=== PATIENT | male | born 1950 | race Caucasian/White ===

== ENCOUNTER 2023-08-31 16:30 | Observation (INO) | payer MEDICARE, OTHER, SELFPAY ==
[2023-08-31] VITALS (13 sets, daily range): BP systolic 108–147; BP diastolic 62–89; BMI 21.6
[2023-08-31 10:35] LABS: % Basophils 0.5 % (0-2); % Eosinophils 0.9 % (0-6); % Immature Granulocytes 0.6 % (0-0.5); % Lymphocytes 8.4 % (20.5-51.1); % Monocytes 13.5 % (1.7-9.3); % Neutrophils 76.1 % (42.2-75.2); Absolute Basophils 0.1 10^3/uL (0-0.2); Absolute Eosinophils 0.1 10^3/uL (0-0.7); Absolute Immature Granulocytes 0.1 10^3/uL (0-0.05); Absolute Monocytes 1.6 10^3/uL (0.1-0.6); Absolute Neutrophils 8.9 10^3/uL (1.4-6.5); Hematocrit 41.4 % (39.0-52.0); Hemoglobin 14.5 g/dL (13.0-18.0); Mean Corpuscular Hgb 31.7 pg (27.0-31.0); Mean Corpuscular Volume 90.4 fL (80.0-94.0); Mean Platelet Volume 9.4 fL (7.4-10.4); Nucleated Red Blood Cells % 0 % (-); Platelet Count 291 10^3/uL (130-400); Red Blood Cell Count 4.58 10^6/uL (4.70-6.10); Red Cell Dist. Width 12.6 % (11.5-14.5); White Blood Cell Count 11.7 10^3/uL (4.8-10.8)
[2023-08-31 10:42] LABS: ALT (SGPT) 28 U/L (0-50); AST (SGOT) 33 U/L (17-59); Albumin 3.7 g/dl (3.5-5.0); Alkaline Phosphatase 78 U/L (38-126); Blood Urea Nitrogen 16 mg/dl (9-20); Calcium 9.1 mg/dl (8.4-10.2); Carbon Dioxide 27 mmol/L (22-30); Chloride 100 mmol/L (98-107); Glucose 109 mg/dl (70-99); Potassium 4.6 mmol/L (3.5-5.1); Sodium 135 mmol/L (135-145); Total Bilirubin 0.4 mg/dl (0.2-1.3); Total Protein 6.3 g/dl (6.3-8.2); eGFR > 60.00
[2023-08-31 10:56] LABS: Troponin I 0.366 ng/ml
--- NOTE | 2023-08-31 11:13 | EDRN ---
Dr. Madrid in room w/ pt.
--- NOTE | 2023-08-31 11:19 | ED.GENMED ---
History of Present Illness
General
Chief Complaint: Chest Pain
Source: patient
Exam Limitations: none
Time Seen by Provider: 08/31/23 11:05
Nursing documentation reviewed up to this point in time: agreed with
Travel History
Have you had any contact with someone who has COVID-19?: No
Do you have any symptoms of coronavirus? Fever > 100 degrees, chills, cough, shortness of breath, sore throat, loss of taste or smell, muscle aches, or headache?: No
History of Present Illness
History of Present Illness:
73-year-old male presents emergency department complaining of chest pressure and mild shortness of breath since Wednesday. He also complains of some mild nausea. He is being treated for a staph infection on his right elbow, that was drained by
orthopedics 2 weeks ago. He has been on doxycycline and another antibiotic.
Past History
Past History
ED Past Medical History: Hypercholesterolemia and Other (Elevated calcium score)
ED Past Surgical History: Other (Hernia repair x 2)
Social History
Tobacco: Non-smoker
Alcohol: None
Drug: None
Personal:
Living: with family
Employment: Employed
Review of Systems
Review of Systems
Allergies reviewed?: Yes
All Other Systems: Not applicable
Constitutional: Reports no symptoms
EENT: Reports no symptoms
Respiratory: Reports trouble breathing
Cardiac: Reports chest pain
ABD/GI: Reports no symptoms
: Reports no symptoms
Musculoskeletal: Reports no symptoms
Skin: Reports no symptoms
Neurological: Reports no symptoms
Endocrine: Reports no symptoms
Hematologic/Lymphatic: Reports no symptoms
Psychiatric: Reports no symptoms
Phy Exam
Physical Exam
Physical Exam:
Physical Exam
General: no apparent distress, not acutely ill
Neck: supple. no meningeal signs. normal posterior pharynx
Heart: s1/s2 regular rate and rhythm, no murmur. equal radial
pulses.
HEENT: Pupils equal round reactive to light, EOMI
Lungs: no acute respiratory distress. clear bilaterally
Abdomen: normal bowel sounds. not tender. no CVAT
Neuro: alert and oriented. no focal neurological deficits cranial nerves II through XII intact
Skin: Erythema right elbow, bursitis
Psychiatric: well kept. interactive and cooperative
Extremities: no edema. no calf tenderness. negative homans. good distal pulses
Scores
Heart Score for Chest Pain Patients
STEMI patient?: No
History: Moderately Suspicious
ECG: Normal
Age: >/= 65 years
Risk Factors: 1 or 2 Risk Factors
Troponin: >/= 3 x Normal Limit
Heart Score for Chest Pain Patients: 6
Heart Score Risk: 20.3% MACE over next 6 weeks
Course
Orders/Labs/Results
Orders:
Orders
08/31/23 09:56
Electrocardiogram (*1) Urgent
Reason for Study: Chest Pain
EKG- Treatment ONCE
08/31/23 Lunch
Cholesterol Lowering
At Your Request: Full Participation
Cholesterol Lowering: Sodium, 2 Gram
08/31/23 10:05
Complete Blood Count/With Diff Urgent
Comprehensive Metabolic Panel Urgent
NT-proBNP Urgent
Comment: ADD ON
Troponin I Urgent
08/31/23 11:06
CR Chest - 2 Views Urgent
Comment:
Reason For Exam: short of breath
08/31/23 11:07
Add On- LAB Urgent
Tests Added?: pro bnp
08/31/23 11:48
D-Dimer Urgent
08/31/23 13:41
Heparin 1000 Units/500 ml [Heparin] 1,000 units in 500 ml .ROUTE .STK-MED
Lidocaine HCl/Pf [Xylocaine-Mpf 1% Vial] 100 mg .ROUTE .STK-MED ONE
08/31/23 13:42
Heparin Sodium,Porcine/Ns/Pf [Heparin 2000 Units/1000 ml] 2,000 unit in 1,000 ml .ROUTE .STK-MED
Nitroglycerin [Tridil] 1,500 mcg .ROUTE .STK-MED ONE
08/31/23 13:43
Fentanyl Citrate/Pf [Sublimaze] 100 mcg .ROUTE .STK-MED ONE
Heparin 10,000 units .ROUTE .STK-MED ONE
Midazolam HCl [Versed] 2 mg .ROUTE .STK-MED ONE
08/31/23 13:46
Echo 2D MMode Color/Doppler Urgent
Reason for Study: chest pain, elevated Troponin
Cardiology Consult: Roslyn Hu
08/31/23 13:52
Aspirin Chewable [Low Strength Aspirin] 324 mg PO NOW STA
08/31/23 14:37
Verapamil Injectable [Isoptin/Verapamil Injection] 5 mg .ROUTE .STK-MED ONE
08/31/23 15:00
Troponin I Routine
08/31/23 15:21
Acetaminophen [Tylenol] 650 mg PO Q4HPRN PRN
Activity As Directed
Activity Level: Out of Bed- Ad [place]
Activity Frequency: Ad [place]
Shoulder Sawyer Procedure As Directed
Cardiac Cath Procedure: cardiac catheterization
Notify MD As Directed
Notify physician if: immediately for chest pain or bleeding from access site(s)
Radial Artery Hemostasis Method As Directed
Instructions:: 3 mL out at 1 hour post placement of band
3 mL out at 1 1/2 hours post placement of band
3 mL out at 2 hours post placement of band
Off at 2 1/2 hours post placement of band
If any oozing or hemotoma occurs:: re-inflate band and call provider
Site Checks As Directed
Check access site for bleeding/hematoma: Yes
Comment: on arrival, Q15min x4, Q30min x2, Q1 hr x2, Q2 hr x2, Q4 hr or per
protocol
Vascular Checks As Directed
Location: distal to access site - pulse check
Frequency: Other
Comment: on arrival, Q15min x4, Q30min x2, Q1 hr x2, Q2 hr x2, Q4 hr or per protocol
Vital Signs As Directed
Frequency: Other
Additional Instructions:: on arrival, Q15min x4, Q30min x2, Q1 hr x2, Q2 hr x2, then Q4 hr or per unit
protocol
08/31/23 15:30
0.9% Sodium Chloride 1000 ml [Nss] 1,000 ml IV PER PROTOCOL
Infusion rate in mL/kg/hr:: 1.5
Infusion rate in mL/hr:: 108
Duration of infusion (hours):: 3
08/31/23 16:00
0.9% Sodium Chloride 500 ml [Nss] 500 ml IV 40 mls/hr
08/31/23 16:06
WOUND/OSTOMY CONSULT Routine
Reason for Consult: R elbow wound
08/31/23 16:07
Admit/Transfer Patient As Directed
Co-Sign Provider:
Level of Care: Observation services
Assign to:: Telemetry
Physician / Group: molly lindsey
Diagnosis: cp non mi trop elevation
Reason for Telemetry: Chest Pain syndromes
Date to Stop Telemetry: 09/02/23
Time to Stop Telemetry: 11:00
Code Status As Directed
Resuscitation Status: Full Code
08/31/23 16:10
CARDIOLOGY CONSULT Routine
Consulting Provider: Roslyn Hu
Was physician already notified: Yes
Reason for consult: non mi trop elevation
Famotidine [Pepcid] 20 mg IV NOW STA
08/31/23 16:27
0.9% Sodium Chloride [Nss (Preservative Free)] 8 ml IV NOW STA
08/31/23 20:00
Sulfamethox./Trimethoprim Ds [Bactrim Ds 800 mg/160 mg] 1 tablet PO BID
09/01/23 06:00
Basic Metabolic Panel IN AM
Cardiovascular Evaluation IN AM
Complete Blood Count/No Diff IN AM
Troponin I IN AM
09/01/23 08:00
Ascorbic Acid [Vitamin C] 500 mg PO DAILY
Aspirin Chewable [Low Strength Aspirin] 81 mg PO DAILY
Atorvastatin [Lipitor] 10 mg PO Q48H
Cholecalciferol (Vitamin D3) [VITAMIN D3 (cholecalciferol)] 25 mcg PO DAILY
Cyanocobalamin [Vitamin B-12] 1,000 mcg PO DAILY
Multivitamin [Theragran] 1 tablet PO DAILY
Vitamin E 400 units PO DAILY
finasteride 0 mg PO DAILY
09/02/23 11:00
DC Protocol for Telemetry ONCE
Abnormal Lab Results
08/31/23 08/31/23
10:05 15:00
WBC 11.7 H 10^3/uL
(4.8-10.8)
RBC 4.58 L 10^6/uL
(4.70-6.10)
MCH 31.7 H pg
(27.0-31.0)
Abs Immat Gran (auto) 0.1 H 10^3/uL
(0-0.05)
Absolute Neuts (auto) 8.9 H 10^3/uL
(1.4-6.5)
Absolute Lymphs (auto) 1.0 L 10^3/uL
(1.2-3.4)
Absolute Monos (auto) 1.6 H 10^3/uL
(0.1-0.6)
Immature Gran % 0.6 H %
(0-0.5)
Neutrophils % 76.1 H %
(42.2-75.2)
Lymphocytes % 8.4 L %
(20.5-51.1)
Monocytes % 13.5 H %
(1.7-9.3)
Glucose 109 H mg/dl
(70-99)
Troponin I 0.366 H* ng/ml 0.440 H* ng/ml
08/31/23 10:05
08/31/23 10:05
Vital Signs
Initial and Last Documented VS:
Initial Vital Signs
Temp Pulse Resp BP Pulse Ox
98.6 F 89 16 146/82 98
08/31/23 09:52 08/31/23 09:52 08/31/23 09:52 08/31/23 09:52 08/31/23 09:52
Last Documented Vital Signs
Temp Pulse Resp BP Pulse Ox
99.3 F 94 19 108/62 95
08/31/23 16:49 08/31/23 16:49 08/31/23 16:49 08/31/23 16:49 08/31/23 16:49
MDM/Problems Addressed
Differential Diagnosis Includes:
Unstable angina, PE, CHF
MDM/Problems Addressed:
73-year-old male with unstable angina, elevated troponin, D-dimer negative.
Chronic conditions affecting care: Other (Hyperlipidemia)
Acute Exacerbation and/or Progression of Chronic Illness: Other (Hyperlipidemia)
*Radiology
Radiology exam reviewed: radiology read reviewed (Chest x-ray no acute finding)
*Pulse Oximetry
Patient hypoxic: no
*EKG
Interpreted by ED Provider?: Yes
EKG Intrepretation Date: 08/31/23
EKG Intrepretation Time: 09:59
Interpretation: normal
Comparison EKG: no comparison EKG present
Heart Rate: 87
Rate: normal
Rhythm: sinus
[place]: normal axis
Interval: normal interval
QRS Pattern: normal QRS
Ischemia: no ischemia
*Garment Patternmaker Interpretation
Rate: normal
Interpretation: normal
Heart Rate: 88
Rhythm: sinus
*Critical Care Note
Total Time (30-74mins, 75-104mins- exclusive of procedures): Not Applicable
Patient Management
Social determinants of health affecting care: Living situation
Discussion with other providers: Hospitalist and Machine Operator Hop Picker (Cardiology)
Escalation/DeEscalation of care consider admission/obs:
Admit indicated
ED Attending Note
-
Portions of this chart may have been created with voice recognition software.� Occasional wrong word or��sound alike� substitutions may have occurred due to the inherent limitations of voice recognition software.
Discharge Plan
Departure
Patient Disposition: Admit
Date of Disposition: 08/31/23
Time of Disposition: 13:10
Admit to: IVU
Presentation/result/management discussed w/ accepting MD/DO: Hospitalist
Patient with high blood pressure during this ER visit?: Yes
Condition: Good
Discharge Problem:
Unstable angina, Infection of right olecranon bursa
Interventions
Interventions:
*Risk Screen - Suicide Last Done: 08/31/23 15:37
*General Assessment Last Done: 08/31/23 09:52
*Neglect/Abuse Screening Last Done: 08/31/23 09:52
ED- Fall Risk Assessment Last Done: 08/31/23 11:27
*ED COVID-19 Vaccine History Last Done: 08/31/23 15:37
*Nursing Disposition Last Done: 08/31/23 14:28
ED- Cardiac Assessment Last Done: 08/31/23 11:51
Discharge Date and Time
Discharge Date/Time: 08/31/23 14:28
[2023-08-31 11:41] LABS: NT-proBNP 1240 pg/ml
--- NOTE | 2023-08-31 12:03 | EDRN ---
Dr. Madrid in room w/ pt at this time.
[2023-08-31 12:10] LABS: D-Dimer 0.47 ug/mlFEU (0.00-0.50)
--- NOTE | 2023-08-31 12:54 | WOUNDNOTE ---
WOUND/SKIN CARE NOTE: R elbow. Pt identified by name and .
R elbow
--- NOTE | 2023-08-31 13:42 | EDRN ---
Miranda Guzman PA in room w/ pt at this time. laborer golf course has called for report at this time.
--- NOTE | 2023-08-31 13:43 | EDRN ---
Dr. Hu is in room w/ pt at this time.
--- NOTE | 2023-08-31 13:45 | EDRN ---
Report called to Geraldine BREWSTER in tailings dam laborer. Pt was to go to tailings dam laborer per Dr. Hu but Dr. Hu in room w/ pt and giving pt options tailings dam laborer or trending of troponins. Awaiting to know if tailings dam laborer is a go or not.
--- NOTE | 2023-08-31 13:49 | EDRN ---
Dr. Hu said echocardiogram first then pt to go to electronic lab technician.
--- NOTE | 2023-08-31 13:53 | CON.CAR ---
Addendum entered and electronically signed by Roslyn Hu MD 08/31/23 14:35:
I saw and examined the patient.
The Metal Bonding Assembler's note was reviewed and I agree with the note.
Comment: Briefly, Ralph is a 73-year-old gentleman with past medical history of hyperlipidemia and family history of premature coronary artery disease in both his dad as well as brother with MIs in early 50s, former smoker who presents today with
2-day history of substernal chest pressure associated with shortness of breath, nonexertional in nature, mildly pleuritic found to have a mild troponin elevation concerning for NSTEMI. He suffered a mechanical fall about 3 weeks ago injuring his
right elbow which was complicated by a soft tissue infection which she is undergoing antibiotic treatment for. He reports some fevers and chills last evening however denies any other upper respiratory illness recently. He notes a mild dry cough
since Wednesday. He has been ambulating and going up flights of stairs without worsening of his symptoms however the pain never resolved. Family came into the emergency department today given his son was able to drive him.
Vital signs are stable. Exam shows a gentleman in no acute distress, awake, alert and oriented x 3, regular rate, normal S1 and S2, no murmurs, rubs or gallops, lungs are clear to auscultation bilaterally, no JVD, abdomen is soft, nontender,
nondistended with active bowel sounds, right elbow injury is dressed, warm extremities, no significant edema.
EKG with no acute ischemic changes. Initial troponin is mildly elevated at 0.36. Negative D-dimer. Bedside stat echocardiogram preliminarily showing normal biventricular function without obvious wall motion abnormalities or significant valvular
disease.
Plan:
1. Patient's chest discomfort is somewhat atypical and that it has been constant over the last 2 days, nonexertional however as discussed with the patient I do not have a clear explanation for his mild troponin elevation. There is no other obvious
etiology to explain his symptoms. Given he is 73 years of age with multiple cardiovascular risk factors, I think it is reasonable to rule out obstructive CAD as underlying etiology. After detailed informed consent reviewing the risk and benefits,
in a shared decision-making fashion we have agreed to move forward with left heart catheterization and coronary angiogram.
Further recommendations based on findings of the heart catheterization.
Roslyn Hu MD, [facility], [facility]
Original Note:
Consultation
Consultation Request
Date/Time Consultation Requested: 08/31/23
Date/Time Consultation Performed: 08/31/23
Requesting Provider: Dr. Madrid in the ER
Performing Provider: Dr. Hu
Reason for Consultation: Chest pain, elevated Troponin
Medical History
-
History of Present Illness:
Patient came to [facility] today with chest pain and cardiology has been consulted. Patient follows with a wastewater design engineer in [place] for risk factor modification due to a FH of CAD, patient's brother had an W[place] and PCI in his early 50s. Patient used to
smoke, but quite at age 30. Patient with h/o hyperlipidemia and he takes atorvastatin 10 mg every other day. Patient's last ischemic evaluation is described as an exercise nuclear stress test in 2019 that was reportedly normal. Patient describes a
mildly elevated calcium score more than 5 years ago. Patient says that he had a mechanical slip and fall about 3 weeks ago and landed on his right elbow. After a week of ongoing elbow pain he saw an orthopedist and was diagnosed with a soft tissue
infection that was treated with doxycycline and Bactrim. Patient feels elbow has improved. Patient started with substernal chest pressure on Wednesday described as intermittent and associated with SOB. Chest pressure then became constant yesterday and
he asked someone to drive him to [facility] today for an evaluation. Chest pressure is no different with exertion up the stairs. ECG without ST elevation, but initial Troponin 0.366.
PMH:
FH of premature CAD
Hyperlipidemia
Former smoker
Past Medical History
Past Medical History: Other (in HPI)
Past Surgical History: Other (chest tube placement for empyema 18 years ago)
Social History
Tobacco: Former Smoker (quit age 30)
Alcohol: Daily (2 beers a day)
Drug: None
Personal:
Living: With Family
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
Family History
Family History: Early CAD (father WV in his early 50s and brother with WV and PCI in his early 50s)
Allergies / Home Medications
Allergy/AdvReac Type Severity Reaction Status Date / Time
No Known Allergies Allergy Verified 08/31/23 09:52
Medication Instructions Recorded Confirmed Type
Prostate Vitamin 1 tab PO DAILY 08/31/23 08/31/23 History
Vitamin C 1 tab PO DAILY 08/31/23 08/31/23 History
atorvastatin 10 mg tablet 10 mg PO Q48H@0800 08/31/23 08/31/23 History
cholecalciferol (vitamin D3) 1 tab PO DAILY 08/31/23 08/31/23 History
cyanocobalamin (vitamin B-12) 1 tab PO DAILY 08/31/23 08/31/23 History
finasteride 1 mg tablet 1 mg PO DAILY 08/31/23 08/31/23 History
ibuprofen 200 mg tablet (Advil) 600 mg PO QIDPRN PRN mild pain 08/31/23 08/31/23 History
sulfamethoxazole 800 1 tab PO BID 08/31/23 08/31/23 History
mg-trimethoprim 160 mg tablet
therapeutic multivitamin 1 tab PO DAILY 08/31/23 08/31/23 History
vitamin E 1 tab PO DAILY 08/31/23 08/31/23 History
Review of Systems
-
History Source: Patient
All other systems: Negative unless noted
Physical Exam
Vital Signs
Temp Pulse Resp BP Pulse Ox
98.6 F 86 19 138/83 92
08/31/23 09:52 08/31/23 13:15 08/31/23 13:15 08/31/23 12:00 08/31/23 13:15
GEN: No distress, AAOx3
HEENT: EOMI, MMM
LUNGS: CTA, no wheezes/rales
CV: Reg, S1/S2, no murmur
ABD: soft, BS+, NT, ND
EXT: No clubbing, cyanosis, lesions or edema B/L
NEURO: Gross non-focal
SKIN: Right elbow covered with 3 adhesive bandages and no surrounding erythema or malodor. Warm, dry and pink. No rash
Lab Results
08/31/23 10:05
08/31/23 10:05
Troponin I 0.366 ng/ml H* 08/31/23 10:05
Lmc-U-Vjuuavczvgs Pept 1240 pg/ml 08/31/23 10:05
Impression / Plan
-
PCP: Dr. Tobin
Cardiology: Dr. Moises Campbell in [place]
Impression:
Chest pain
Elevated Troponin
FH of premature CAD
Hyperlipidemia
Former smoker
Right elbow injury with soft tissue infection 08/2022
Echo 08/31/23: Urgent bedside study in the ER, EF normal, no significant WMA
Plan:
-Patient came [facility] today with chest pain and cardiology has been consulted. Patient follows with a wastewater design engineer in [place] for risk factor modification due to a FH of CAD, patient's brother had an W[place] and PCI in his early 50s. Patient used to
smoke, but quite at age 30. Patient with h/o hyperlipidemia and he takes atorvastatin 10 mg every other day. Patient's last ischemic evaluation is described as an exercise nuclear stress test in 2019 that was reportedly normal. Patient describes a
mildly elevated calcium score more than 5 years ago. Patient says that he had a mechanical slip and fall about 3 weeks ago and landed on his right elbow. After a week of ongoing elbow pain he saw an orthopedist and was diagnosed with a soft tissue
infection that was treated with doxycycline and Bactrim. Patient feels elbow has improved. Patient started with substernal chest pressure on Wednesday described as intermittent and associated with SOB. Chest pressure then became constant yesterday and
he asked someone to drive him to [facility] today for an evaluation. Chest pressure is no different with exertion up the stairs. ECG reviewed by me without ST elevation, but initial Troponin 0.366.
-Urgent bedside echo ordered and echo team contacted. No obvious WMA on echo and EF is preserved.
-D-Dimer normal.
-Chest pressure is present. Patient was given aspirin 324 mg PO x1 in the ER.
-Reviewed ongoing chest pressure with patient and echo findings. Elevated Troponin of concern. Patient is agreeable to cardiac cath.
[2023-08-31] MEDS: LOW STRENGTH ASPIRIN 324 MG PO (14:00)
--- NOTE | 2023-08-31 14:35 | ITS.CL.CATH ---
Linen Supply Load Builder - Catheterization
Cardiac Catheterization
Procedure Report:
LEFT HEART CATHETERIZATION
Date of Procedure: August 31, 2023
Referring: [place] emergency department
PROCEDURES:
1. Left catheterization, coronary angiogram.
2. Ultrasound-guided access
INDICATION: Mr. Jones is a 73-year-old gentleman with past medical history of hyperlipidemia and family history of premature coronary artery disease in both his dad as well as brother with MIs in early 50s, former smoker who presents today with
2-day history of substernal chest pressure associated with shortness of breath, nonexertional in nature, mildly pleuritic found to have a mild troponin elevation concerning for NSTEMI. He suffered a mechanical fall about 3 weeks ago injuring his
right elbow which was complicated by a soft tissue infection which she is undergoing antibiotic treatment for. He reports some fevers and chills last evening however denies any other upper respiratory illness recently. He notes a mild dry cough
since Wednesday. He has been ambulating and going up flights of stairs without worsening of his symptoms however the pain never resolved. Family came into the emergency department today given his son was able to drive him. EKG with no acute ischemic
changes. Initial troponin is mildly elevated at 0.36. Negative D-dimer. Bedside stat echocardiogram preliminarily showing normal biventricular function without obvious wall motion abnormalities or significant valvular disease. Given no other
obvious etiology to explain his chest pressure or troponin elevation, in a shared decision making after detailed informed consent reviewing the risk and benefits, will be agreed to move forward with a left heart catheterization and coronary
angiogram to rule out obstructive CAD. Patient received full dose aspirin in ED.
ACCESS: Right radial artery, 6 Angolan sheath, under ultrasound-guided
HEMODYNAMICS : (mmHg)
AO (s/d) : 105/65
LV (s/d) : 121/1
LVEDP : 14
CORONARY FINDINGS
DOMINANCE: Right
LEFT MAIN: Left main artery is a large-caliber vessel gives rise to the left anterior descending artery and the left circumflex artery. Angiographically normal vessel.
LEFT ANTERIOR DESCENDING: The left anterior descending artery is a large-caliber vessel which gives rise to 2 major diagonal branches as it courses through the anterior interventricular groove and wraps around the apex. There is minimal luminal
irregularities.
CIRCUMFLEX: The left circumflex artery is a medium caliber vessel which gives rise to 1 major obtuse marginal branch. There is minimal luminal irregularities.
RIGHT CORONARY ARTERY: The right coronary artery is a large-caliber, dominant vessel which gives rise to the right posterior descending artery and the right posterolateral system. There is mild to moderate degree of tortuosity. There is minimal
luminal irregularities.
SEDATION: 28 minutes of procedural sedation was utilized. An independent biomedical electronics technician was present to assist with and help manage the patient's level of consciousness and physiologic status.
RADIATION SUMMARY: Fluoro Time (min): 3.3, Dose (mGy): 252.24, DAP (Gy.cm2) : 17.3
Closure Device: Vascular band over right radial artery, 11 cc of air
CONCLUSIONS
1. No obstructive coronary artery disease.
2. Normal LVEDP
RECOMMENDATIONS
1. Wean radial band per protocol.
2. Trend out troponin levels. Unclear etiology of his ongoing chest pressure with no epicardial coronary artery disease to explain it. No obvious evidence of Takotsubo cardiomyopathy or SCAD. Cannot rule out small vessel CAD or microvessel
disease versus possibly noncardiac etiology.
3. Aggressive management of cardiovascular risk factors.
Roslyn Hu MD, FACC, [facility]
[2023-08-31] MEDS: NSS 500 IV (15:33)
--- NOTE | 2023-08-31 15:49 | HPS.HSE ---
Addendum entered and electronically signed by Joe Canales MD 08/31/23 16:17:
I saw and examined the patient.
The SOLAR THERMAL INSTALLER's note was reviewed and I agree with the note.
Comment:
73-year-old male who is presenting with chest pain ongoing for some time. Patient with strong premature coronary artery disease history in family. Patient had a mechanical fall leading to right elbow swelling. Patient went to [facility]
and underwent bedside drainage. Patient initially was started on doxycycline and Bactrim. Subsequently patient had a follow-up and he was told to discontinue Doxy and continue with Bactrim. Patient will be finishing Bactrim dose. Per outpatient
orthopedic, plan is to complete antibiotic course and observe off antibiotic for 1 week and follow-up in the office next week. Patient states the swelling has significantly reduced and almost 95% swelling and erythema has resolved. Patient is able
to flex and extend right elbow without any difficulty. Patient denies any numbing or tingling of right upper extremity. Patient was taking multiple Advil at home for right elbow pain. Currently states significant improvement in chest pain.
Denies any nausea or vomiting. Denies any shortness of breath.
General: Comfortable and Conversant; No Pain, Fever or Chills
HEENT: NormoCephalic, Anicteric, Moist mucous membranes, PERRLA, [place] Conjunctivae and No Ptosis
Respiratory: Clear; No Wheezes, Rales or Rhonchi
Cardiac: S1/S2 and Regular Rhythm; No Murmur, Rub, Gallop or Peripheral Edema
GI: Soft, Non Tender, Non Distended, Normal Bowel Sounds and No Hepatosplenomegaly
Musculoskeletal: No Clubbing, No Cyanosis and No Edema
Skin: Warm, Dry and Other (Resolving right olecranon bursitis slight erythema no warmth dried open area 3 weeks old full range of motion no pain); No Rash
Impression
Atypical chest pain likely secondary to gastritis versus peptic ulcer disease
Elevated troponin
Nonobstructive CAD
Primary HTN
R elbow/olecrannon bursitis
BPH
Plan
start Pepcid and PPI
Trend troponin
Echocardiogram noted without any wall motion abnormality
Cardiac catheter report noted
Started on aspirin
Avoid NSAIDs
Of wound care consult
Continue with outpatient Bactrim with plan to complete course and then follow-up with orthopedic early next week
If any change in erythema or pain or pus will need orthopedic and ID eval
Continue with finasteride
DVT prophylaxis
Original Note:
Family Physician
-
Family Physician: NOT KNOW UNKNOWN - PT DOES
Chief Complaint
-
chest pain
History of Present Illness
73-year-old male complaining of midsternal chest pressure with occasional indigestion since Wednesday 2 days ago. He denies any radiation of pain, or diaphoresis. He has been taking Motrin 2 tabs 6 times a day total 12 tablets a day and drinks 2
beers daily with last drink 6 PM yesterday 08/30/2023. He is currently being treated for olecranon bursitis of his right elbow after a fall 3 weeks ago was initially treated with doxycycline then Bactrim and additional course of Bactrim of which he
has 2 days left. The elbow is healing well with no current drainage. He denies fever, chills, cough, abdominal pain, nausea, vomiting, diarrhea, black or bloody stools, urinary symptoms. He has past medical history of HLD, elevated calcium score,
former smoker quit age 30, alcohol abuse.
Medical History
Past Medical History
Past Medical History: Reports Other (hld , etoh abuse , bph)
Past Surgical History: Reports Other (bilat hernia)
Social History
Tobacco: Former Smoker (quit age 30)
Alcohol: Daily
Drug: None
Personal:
Living: With Family ( )
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
Family History
Family History: CAD (father brother mi age 50's , brother hx colon cancer )
Allergies / Home Medications
Allergies reflects when Allergies were last updated in [facility].
Home Medications with original date entered in [facility]
Allergy/Medication List:
Allergies
Allergy/AdvReac Type Severity Reaction Status Date / Time
No Known Allergies Allergy Verified 08/31/23 09:52
Home Medications
Prostate Vitamin 1 tab PO DAILY Supplement 08/31/23
Vitamin C 1 tab PO DAILY Supplement 08/31/23
atorvastatin 10 mg tablet 10 mg PO Q48H@0800 High Cholesterol 08/31/23
cholecalciferol (vitamin D3) 1 tab PO DAILY Supplement 08/31/23
cyanocobalamin (vitamin B-12) 1 tab PO DAILY Supplement 08/31/23
finasteride 1 mg tablet 1 mg PO DAILY Hormonal Agent 08/31/23
ibuprofen 200 mg tablet (Advil) 600 mg PO QIDPRN PRN mild pain 08/31/23
sulfamethoxazole 800 mg-trimethoprim 160 mg tablet 1 tab PO BID Infection 08/31/23
therapeutic multivitamin 1 tab PO DAILY Supplement 08/31/23
vitamin E 1 tab PO DAILY Supplement 08/31/23
Review of Systems
-
History Source: Patient
A 12 point ROS was completed and negative except as noted: Yes
Constitutional: Denies Fever or Chills
EENT: Denies Sore Throat or Runny Nose
Respiratory: Denies Cough or Trouble Breathing
Cardiac: Reports Chest Pain; Denies Diaphoresis, Palpitations or Syncope
Abdomen/GI: Denies Abdominal Pain, Nausea, Vomiting, Diarrhea, Constipated, Bloody Stools or Black Stools
: Denies Dysuria, Frequency, Flank Pain, Incontinence or Difficulty Voiding
Musculoskeletal: Reports Other (Resolving right olecranon bursitis slight erythema no warmth dried open area 3 weeks old full range of motion no pain); Denies Joint Pain or Edema
Skin: Denies Itching or Rash
Neurological: Denies Dizzy, Headache or Weakness
Endocrine: Reports No Symptoms
Hematologic/Lymphatic: Reports No Symptoms
Psych: Reports Calm
Physical Exam
Vital Signs
Vital Signs
Temp Pulse Resp BP Pulse Ox
99.1 F 86 18 138/79 96
08/31/23 15:22 08/31/23 15:22 08/31/23 15:22 08/31/23 14:02 08/31/23 15:22
Physical Exam
General: Comfortable and Conversant; No Pain, Fever or Chills
HEENT: NormoCephalic, Anicteric, Moist mucous membranes, PERRLA, [place] Conjunctivae and No Ptosis
Respiratory: Clear; No Wheezes, Rales or Rhonchi
Cardiac: S1/S2 and Regular Rhythm; No Murmur, Rub, Gallop or Peripheral Edema
Breast: Deferred by me
GI: Soft, Non Tender, Non Distended, Normal Bowel Sounds and No Hepatosplenomegaly
Rectal: Deferred by Provider
Genito-urinary: Deferred by me
Musculoskeletal: No Clubbing, No Cyanosis and No Edema
Skin: Warm, Dry and Other (Resolving right olecranon bursitis slight erythema no warmth dried open area 3 weeks old full range of motion no pain); No Rash
Laboratory Results
-
08/31/23 10:05
08/31/23 10:05
Laboratory Results
Total Bilirubin 0.4 mg/dl (0.2-1.3) 08/31/23 10:05
AST 33 U/L (17-59) 08/31/23 10:05
ALT 28 U/L (0-50) 08/31/23 10:05
Alkaline Phosphatase 78 U/L (38-126) 08/31/23 10:05
Troponin I 0.440 ng/ml H* 08/31/23 15:00
Impression/Plan
-
Impression/plan:
Observation telemetry
#Chest pain concern ACS
#Non-RI troponin elevation
-Cardiac cath today nonobstructive CAD -seen by cardiology [facility] Dr. Hu
-Patient currently chest pain-free status post cardiac cath
-Troponin 0.366 will trend
-Advised patient to stop Motrin use
#Right elbow all current on bursitis�resolved
-Continue 2 days left of Bactrim
#Alcohol abuse
-Drinks 2 beers daily last drink 08/30/2023 6 PM
-Cessation advised
No current concern for withdrawal
-Will add IV PPI given combination of 12 Motrin a day for the past 3 weeks
#HLD
Check lipid profile
-Continue atorvastatin 10 mg every 48 H
#BPH
-Continue finasteride 1 mg daily
#History of left-sided empyema with chest tube 18 years ago
#Former smoker quit age 30
DVT prophylaxis
SCDs
Full code
[2023-08-31] MEDS: NSS (PRESERVATIVE FREE) 8 ML IV (16:41)
[2023-08-31] MEDS: PEPCID 20 MG IV (16:41)
--- NOTE | 2023-08-31 17:14 | PTCARENOTE ---
1710 Received pt from mechanical shop laborer, right wrist deflated with mechanical shop laborer rn, no bleeding noted. VSS, patient in no apparent distress.
[2023-08-31] MEDS: BACTRIM DS 800 MG/160 MG 1 TABLET PO (20:07)
[2023-09-01 03:00] VITALS: BP 109/61
[2023-09-01] MEDS: NSS IV (05:00)
[2023-09-01 05:45] LABS: Hematocrit 38.5 % (39.0-52.0); Hemoglobin 13.4 g/dL (13.0-18.0); Mean Corp Hgb Conc. 34.8 g/dL (33.0-37.0); Mean Corpuscular Hgb 31.7 pg (27.0-31.0); Mean Platelet Volume 9.6 fL (7.4-10.4); Platelet Count 263 10^3/uL (130-400); Red Blood Cell Count 4.23 10^6/uL (4.70-6.10); Red Cell Dist. Width 12.7 % (11.5-14.5); White Blood Cell Count 9.6 10^3/uL (4.8-10.8)
[2023-09-01 06:12] LABS: Blood Urea Nitrogen 14 mg/dl (9-20); Calcium 8.8 mg/dl (8.4-10.2); Carbon Dioxide 26 mmol/L (22-30); Chloride 101 mmol/L (98-107); Estimated Creatinine Clearance 68 ml/min; Glucose 108 mg/dl (70-99); HDL Cholesterol 51 mg/dl; LDL Cholesterol, Calculated 39 mg/dl; Potassium 4.5 mmol/L (3.5-5.1); Sodium 135 mmol/L (135-145); Total Cholesterol 109 mg/dl (50-199); Triglyceride 95 mg/dl (10-149); Very Low Density Lipoprotein 19 mg/dl (0-30); eGFR > 60.00
[2023-09-01 06:21] LABS: Troponin I 0.235 ng/ml
[2023-09-01 07:09] VITALS: BP 118/70
[2023-09-01] MEDS: VITAMIN D3 (cholecalciferol) 25 MCG PO (08:01)
[2023-09-01] MEDS: VITAMIN E 400 UNITS PO (08:01)
[2023-09-01] MEDS: VITAMIN B-12 1000 MCG PO (08:01)
[2023-09-01] MEDS: VITAMIN C 500 MG PO (08:01)
[2023-09-01] MEDS: BACTRIM DS 800 MG/160 MG 1 TABLET PO (08:01)
[2023-09-01] MEDS: LOW STRENGTH ASPIRIN 81 MG PO (08:01)
[2023-09-01] MEDS: LIPITOR 10 MG PO (08:01)
[2023-09-01] MEDS: PEPCID 20 MG IV (08:02)
[2023-09-01] MEDS: THERAGRAN 1 TABLET PO (08:02)
[2023-09-01] MEDS: NSS (PRESERVATIVE FREE) 8 ML IV (08:02)
--- NOTE | 2023-09-01 11:01 | W.PN.CARDCBS ---
Today's Communication / Plan
-
Okay for discharge. Cath with nonobstructive CAD.
Etiology of abnormal troponin unclear
Continue risk factor modification with aspirin and atorvastatin.
Follow-up with [place] supervisor tellers
Impression / Plan
-
PCP: Dr. Tobin
Cardiology: Dr. Moises Campbell in [place]
Impression:
Chest pain
Elevated Troponin
FH of premature CAD
Hyperlipidemia
Former smoker
Right elbow injury with soft tissue infection 08/2022
Echo 08/31/23: EF normal, no significant WMA
Plan:
-Cardiac cath with nonobstructive disease. LVEF is preserved by echo with no significant valve disease.
-Possible microvascular disease?
-Continue risk factor modification. Continue aspirin and atorvastatin. LDL 39
Recommend follow-up with outpatient supervisor tellers in [place].
Blood pressure stable and controlled
Progress Note - Linter Saw Sharpener
Subjective
Date of Service: September 01, 2023
Chest pain has resolved
Objective
Labs:
09/01/23 05:21
09/01/23 05:21
Labs
Hgb 13.4 g/dL (13.0-18.0) 09/01/23 05:21
Hct 38.5 % (39.0-52.0) L 09/01/23 05:21
Plt Count 263 10^3/uL (130-400) 09/01/23 05:21
Sodium 135 mmol/L (135-145) 09/01/23 05:21
Potassium 4.5 mmol/L (3.5-5.1) 09/01/23 05:21
BUN 14 mg/dl (9-20) 09/01/23 05:21
Creatinine 1.0 mg/dL (0.7-1.3) 09/01/23 05:21
Glucose 108 mg/dl (70-99) H 09/01/23 05:21
Troponins
08/31/23 08/31/23 09/01/23
10:05 15:00 05:21
Troponin I 0.366 H* 0.440 H* 0.235 H*
Vital Signs and I&O:
Vital Signs
Temp Pulse Resp BP Pulse Ox
98.2 F 79 15 118/70 97
09/01/23 07:09 09/01/23 07:09 09/01/23 07:09 09/01/23 07:09 09/01/23 07:09
Vital Signs
Temp Pulse Resp BP Pulse Ox
98.2 F 79 15 118/70 97
09/01/23 07:09 09/01/23 07:09 09/01/23 07:09 09/01/23 07:09 09/01/23 07:09
Intake & Output
08/30/23 08/31/23 09/01/23 09/02/23
06:59 06:59 06:59 06:59
Intake Total 1190 / 1190
Balance 1190 / 1190
Physical Exam
Physical Exam
GEN: No distress, awake, Ox3
HEENT: supple, anicteric, mmm
LUNGS: CTA, no wheezes/rales
CV: Reg, S1/S2, 1/6 syst LSB, no gallop
ABD: soft, BS+, NT/ND
EXT: No edema
NEURO: Gross non-focal
SKIN: R wrist no hematoma
--- NOTE | 2023-09-01 11:16 | W.PN.HOSP.TC ---
Today's Communication/Plan
-
cont ppi
abx
dc home
Assessment / Plan
Assessment / Plan
General: Comfortable and Conversant; No Pain, Fever or Chills
HEENT: NormoCephalic, Anicteric, Moist mucous membranes, PERRLA, [place] Conjunctivae and No Ptosis
Respiratory: Clear; No Wheezes, Rales or Rhonchi
Cardiac: S1/S2 and Regular Rhythm; No Murmur, Rub, Gallop or Peripheral Edema
GI: Soft, Non Tender, Non Distended, Normal Bowel Sounds and No Hepatosplenomegaly
Musculoskeletal: No Clubbing, No Cyanosis and No Edema
Skin: Warm, Dry and Other (Resolving right olecranon bursitis slight erythema no warmth dried open area 3 weeks old full range of motion no pain)
#Atypical Chest pain concern ACS
#Non-CT troponin elevation
-Cardiac cath on admisison nonobstructive CAD -seen by cardiology [facility] Dr. Hu
-Patient currently chest pain-free status post cardiac cath
-Advised patient to stop Motrin use (was taking multiple doses of motrin) at home. seems improving with anti-acid meds
-cards correspondence noted-okay for discharge
#Right elbow all current on bursitis�resolved
-Continue 2 days left of Bactrim
-wound consult
#Alcohol abuse
-Drinks 2 beers daily last drink 08/30/2023 6 PM
-Cessation advised
-No current concern for withdrawal
-Will add IV PPI given combination of 12 Motrin a day for the past 3 weeks
#HLD
-LDL 39
-Continue atorvastatin 10 mg every 48 H
#BPH
-Continue finasteride 1 mg daily
#History of left-sided empyema with chest tube 18 years ago
#Former smoker quit age 30
DVT prophylaxis SCDs
More than 30 minutes spent in discharge including
Final examination of the patient
Summarizing hospital stay
Instructions for continuing care to all relevant caregivers
Preparation of discharge records, prescriptions, and referral forms
Total time spent (in minutes): 50
Anticipated Discharge: Today
Subjective/Interval History
-
Date of Service: September 01, 2023
denies any chest pain or chest discomfort
states R elbow swelling is improving
no drainage from R elbow
Objective Data
-
Labs:
Laboratory Results
09/01/23
05:21
WBC 9.6
Hgb 13.4
Hct 38.5 L
Plt Count 263
Sodium 135
Potassium 4.5
Chloride 101
Carbon Dioxide 26
BUN 14
Creatinine 1.0
Glucose 108 H
Calcium 8.8
Vital Signs:
Vital Signs
Temp Pulse Resp BP Pulse Ox
98.2 F 79 15 118/70 97
09/01/23 07:09 09/01/23 07:09 09/01/23 07:09 09/01/23 07:09 09/01/23 07:09
I&O
08/31/23 09/01/23 09/02/23
06:59 06:59 06:59
Intake Total 1190 / 1190
Balance 1190 / 1190
--- NOTE | 2023-09-01 11:25 | W.DCSUMMARY ---
Discharge Summary
Discharge Data
Date of Admission: 08/31/23
Date of Discharge: 09/01/23
-
Pending Results: No
Hospital Course
73-year-old male past medical history of daily alcohol usage, hyperlipidemia, BPH who is presenting with atypical chest pain. Upon admission patient was found to elevated troponin. Patient was eval by interventional cardiology. Underwent urgent
catheterization which showed nonobstructive coronary artery disease. ECHO with Normal left ventricular size, wall thickness and systolic function without regional wall motion abnormalities.� Estimated left ventricular ejection fraction is 57% by
Alfaro's method, 55 to 60% by visual estimation.� Diastolic function is indeterminate. Normal right ventricular size and function. No significant valvular abnormalities. Trivial pericardial effusion. Postprocedure patient with resolution and
improvement in chest pain. Patient was taking multiple dosing of Motrin approximately 5-6 times a day. Patient said he was taking NSAIDs because of right elbow pain. Patient with fall few weeks ago leading to right olecranon bursa infection which
was I&D by outpatient orthopedic was placed on antibiotics. Patient with significant improvement in erythema and swelling of the right elbow and thus patient be continued on outpatient antibiotic regimen of Bactrim. Per patient outpatient
orthopedic wanted patient to complete antibiotic course and then observe off antibiotic for 1 week and then follow-up in the office next week. As patient was able to flex and extend without any difficulty orthopedic was not consulted in house.
Patient without any fevers and without any chest pain. Patient chest pain improved with Pepcid which will be continued. Patient was counseled on complete NSAID cessation, for now. Aspirin was started per cardiology recommendation. Patient will
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
Discharge Plan
-
Patient Disposition: Home (Routine Discharge)
Discharge Diagnosis/Procedures: Atypical chest
status post Cardiac cath
Condition: Fair
Diet: Low Cholesterol
Activity: With assistance and As tolerated
Driving Restrictions: No driving for 24 hours
Activity Restrictions/Additional Instructions:
Follow-up with your primary orthopedic for right elbow.
Pad R elbow with ABD pad with stockinet as needed for protection.
Stand Alone Forms: DC Instructions- Cath/EP Lab
Referrals:
Moises Campbell MD [Non-Admitting Privileges] - in two to four weeks
UNKNOWN - PT DOES,NOT KNOW [Family Provider] -
Prescriptions:
New
aspirin 81 mg capsule
81 mg PO DAILY Qty: 30 0RF
Continued
atorvastatin 10 mg Tablet
10 mg PO Q48H@0800
therapeutic multivitamin Tablet
1 tab PO DAILY
sulfamethoxazole-trimethoprim 800-160 mg Tablet
1 tab PO BID
Patient Comments:
08/31/2023, pt. filled this med. on 08/27/2023 and is instructed to take one tablet BID for 4 days. Pt. has two days left of taking this med. (today and tomorrow's doses).
finasteride 1 mg Tablet
1 mg PO DAILY
Prostate Vitamin
1 tab PO DAILY
Vitamin C
1 tab PO DAILY
cholecalciferol (vitamin D3)
1 tab PO DAILY
cyanocobalamin (vitamin B-12)
1 tab PO DAILY
vitamin E
1 tab PO DAILY
Discontinued
ibuprofen [Advil] 200 mg Tablet
600 mg PO QIDPRN PRN (Reason: mild pain)
Discharge Orders:
Discharge Patient (As Directed); Ordered 09/01/23
Ordered By: Joe Canales
Discharge Date and Time
Discharge Date/Time: 09/01/23 13:01
[2023-09-01 11:45] VITALS: BP 113/76
--- NOTE | 2023-09-01 12:00 | CM ---
Met with patient at bedside; initial assessment completed
GANN explained and signed; copy of form provided
Pharmacy: [facility]
Family Physician: Melvin Tobin MD, [facility]; [address] [place] [address]
Patient reports that he lives with his in a multi-story home; 3 steps to enter, 10 steps between floors; powder room on the 1st floor
PLOF: independent with ambulation, stairs, and ADLs; works part-time
SNF/Rehab/Home Care utilization history: home care 2005 does not recall name of agency
Transport: will provide ride janny
DME: none
Plan: discharge to home today without services
--- NOTE | 2023-09-01 12:01 | WOUNDNOTE ---
WO RN note: Patient for discharge today. R elbow small wound appears dry/scabbed with less erythema than ED nurse pic. Instructed patient to keep R elbow protected, apply ABD pad with stockinet as needed for protection. ABD pad with stockinet
applied. Updated Dr. Canales who approved local care. Discharge instructions updated.
== END 2023-09-01 13:01 | disposition home or self-care (01) ==
LOC: 2 SOUTH 16:30
PROVIDERS: Emergency Medicine; Nurse Practitioner Adult Health; ADMITTING PHYSICIAN Hospitalist; CONSULT PHYSICIAN Internal Medicine Interventional Cardiology; EMERGENCY PHYSICIAN Emergency Medicine
DX: R07.89 Other chest pain (principal); R06.02 Shortness of breath; I5A Non-ischemic myocardial injury (non-traumatic); E78.5 Hyperlipidemia, unspecified; M71.121 Other infective bursitis, right elbow; B95.8 Unspecified staphylococcus as the cause of diseases classified elsewhere; R05.9 Cough, unspecified; I25.10 Atherosclerotic heart disease of native coronary artery without angina pectoris; I10 Essential (primary) hypertension; N40.0 Benign prostatic hyperplasia without lower urinary tract symptoms; F10.10 Alcohol abuse, uncomplicated; Z82.49 Family history of ischemic heart disease and other diseases of the circulatory system; Z87.891 Personal history of nicotine dependence
CPT/HCPCS: 71046; 76937; 80048; 80053; 80061; 83880; 84484; 85025; 85027; 85379; 93005; 93306; 93458; 99152; 99153; 99285; C1894; G0378; Q9967